=== PATIENT | male | born 1980 | race American Indian/Alaskan Native ===

== ENCOUNTER 2018-02-10 21:39 | Emergency (ER) | payer SELFPAY ==
[2018-02-10] MEDS ORDERED: TORADOL ONE (23:23)
[2018-02-10] MEDS ORDERED: TORADOL IV ONE (23:27)
[2018-02-11 00:18] LABS: Bilirubin,Urine NEG (Negative); Blood,Urine NEG (Negative); Color,Urine Yellow (Yellow); Mucus,Urine FEW /HPF; Protein,Urine <15 mg/dL mg/dL (Negative); Urobilinogen,Urine < 2.0 mg/dL (<2.0)
[2018-02-11 00:43] VITALS: BP 131/91
[2018-02-11] MEDS ORDERED: PERCOCET 5/325 PO ONE (01:11)
--- NOTE | 2018-02-11 01:43 | Emergency Department Report ---
ED Back Pain/Injury HPI - General Chief Complaint: Back Pain/Injury Stated Complaint: LEFT SIDE PAIN Time Seen by Provider: 02/11/18 00:51 Source: patient, family Limitations: No Limitations - History of Present Illness Initial Comments: 37-year-old male with a past medical history of hypertension presents to the hospital complaining of left-sided flank pain yesterday 8 PM tonight. Pain occurred with standing. Now pain is constant, sharp and aching, worse with palpation and movement. He denies nausea, vomiting, diaphoresis, hematuria, dysuria, chest pain, shortness of breath, abdominal pain, or fever. Also denies leg weakness, numbness, or urinary incontinence. Patient states he recently started new job which requires him to do a lot of standing - Related Data Previous Rx's Medication Instructions Recorded Last Taken Type Lisinopril [Zestril TAB] 40 mg PO QDAY #30 tablet 01/20/16 Unknown Rx Meclizine [Antivert] 25 mg PO Q12H #60 tablet 01/20/16 Unknown Rx Carvedilol [Coreg] 6.25 mg PO BID #60 tablet 03/17/16 Unknown Rx amLODIPine [Norvasc] 5 mg PO DAILY #30 tab 03/17/16 Unknown Rx Cyclobenzaprine [Flexeril] 10 mg PO TID PRN #30 tablet 02/11/18 Unknown Rx HYDROcodone/APAP 5-325 [[place] 1 each PO Q4HR PRN #20 tablet 02/11/18 Unknown Rx 5/325] Ibuprofen [Motrin] 800 mg PO Q8HR PRN #30 tablet 02/11/18 Unknown Rx Allergies Allergy/AdvReac Type Severity Reaction Status Date / Time No Known Allergies Allergy Verified 03/17/16 14:13 ED Review of Systems ROS: Stated complaint: LEFT SIDE PAIN Other details as noted in HPI Comment: All other systems reviewed and negative ED Past Medical Hx - Past Medical History Previous Medical History?: Yes Hx Hypertension: Yes Hx Congestive Heart Failure: No Hx Diabetes: No Hx Asthma: No Hx COPD: No - Surgical History Past Surgical History?: No - Social History Smoking Status: Former Smoker Substance Use Type: None - Medications Home Medications: Home Medications Medication Instructions Recorded Confirmed Last Taken Type Lisinopril [Zestril TAB] 40 mg PO QDAY #30 tablet 01/20/16 Unknown Rx Meclizine [Antivert] 25 mg PO Q12H #60 tablet 01/20/16 Unknown Rx Carvedilol [Coreg] 6.25 mg PO BID #60 tablet 03/17/16 Unknown Rx amLODIPine [Norvasc] 5 mg PO DAILY #30 tab 03/17/16 Unknown Rx Cyclobenzaprine [Flexeril] 10 mg PO TID PRN #30 tablet 02/11/18 Unknown Rx HYDROcodone/APAP 5-325 [[place] 1 each PO Q4HR PRN #20 tablet 02/11/18 Unknown Rx 5/325] Ibuprofen [Motrin] 800 mg PO Q8HR PRN #30 tablet 02/11/18 Unknown Rx ED Physical Exam - General Limitations: No Limitations - Other Other exam information: General: No limitations, patient is alert in no acute distress Head exam: Atraumatic, normocephalic Eyes exam: Normal appearance ENT: Moist mucous membrane, normal oropharynx Neck exam: Normal inspection, full range of motion, no meningismus nontender Respiratory exam: Clear to auscultation bilateral, no wheezes, rales, crackles Cardiovascular: Normal rate and rhythm, normal heart sounds Abdomen: Soft, nondistended, and nontender, with normal bowel sounds, no rebound, or guarding Extremity: Full range of motion normal inspection no deformity Back: Normal Inspection, full range of motion, reproducible left-sided flank muscular tenderness to palpation and movement Neurologic: Alert, oriented x3, cranial nerves intact, no motor or sensory deficit Psychiatric: normal affect, normal mood Skin: Warm, dry, intact ED Course Vital Signs 02/10/18 02/10/18 02/11/18 22:19 23:44 00:43 Temperature 98.6 F 98.3 F Pulse Rate 80 71 Respiratory 16 18 16 Rate Blood Pressure 133/92 Blood Pressure 131/91 [Left] O2 Sat by Pulse 99 100 Oximetry 02/11/18 01:22 Temperature Pulse Rate Respiratory 16 Rate Blood Pressure Blood Pressure [Left] O2 Sat by Pulse Oximetry - Reevaluation(s) Reevaluation #1: 02/11/18 01:45 Patient received Toradol prior to my evaluation he continues to have pain. 2 Percocet 5 mg tablets given 02/11/18 02:04 pt feeling better ED Medical Decision Making - Medical Decision Making Patient has reproducible muscular pain to palpation and movement and lacks other associated symptoms. Vital signs in normal range. Plan to discharge patient home with symptomatic treatment for muscle strain - Differential Diagnosis muscle strain, renal colic, dissection Critical Care Time: No Critical care attestation.: If time is entered above; I have spent that time in minutes in the direct care of this critically ill patient, excluding procedure time. ED Disposition Clinical Impression: Low back strain Disposition: DC-01 TO HOME OR SELFCARE Is pt being admited?: No Does the pt Need Aspirin: No Condition: Stable Instructions: Low Back Strain (ED) Additional Instructions: [place] and Flexeril prescribed may cause drowsiness. Do not drive or operate heavy machine while taking this medication. Follow-up with the doctor or clinic provided. Return if symptoms worsen as indicated by your discharge instructions Prescriptions: Cyclobenzaprine [Flexeril] 10 mg PO TID PRN #30 tablet PRN Reason: Muscle Spasm HYDROcodone/APAP 5-325 [[place] 5/325] 1 each PO Q4HR PRN #20 tablet PRN Reason: Pain Ibuprofen [Motrin] 800 mg PO Q8HR PRN #30 tablet PRN Reason: Pain Referrals: MARIBEL PRADHAN MD [Primary Care Provider] - 3-5 Days [facility] [Provider Group] - 3-5 Days Forms: Work/School Release Form(ED) Time of Disposition: 02:04
== END 2018-02-11 02:17 | disposition home or self-care (01) ==
LOC: ED 21:39
DX: S39.012A Strain of muscle, fascia and tendon of lower back, initial encounter (principal); I10 Essential (primary) hypertension; Z87.891 Personal history of nicotine dependence; X58.XXXA Exposure to other specified factors, initial encounter; Y93.89 Activity, other specified; Y92.89 Other specified places as the place of occurrence of the external cause; Y99.8 Other external cause status
CPT/HCPCS: 81001; 96374; 99283; J1885

== ENCOUNTER 2020-10-05 02:06 | Emergency (ER) | payer SELFPAY ==
--- NOTE | 2020-10-05 03:05 | XRay Report ---
CHEST 1 VIEW INDICATION: Chest Pain. COMPARISON: 01/19/2016 FINDINGS: SUPPORT DEVICES: None. HEART: Within normal limits. LUNGS/PLEURA: No acute air space or interstitial disease. ADDITIONAL FINDINGS: None. IMPRESSION: 1. No acute findings. Signer Name: Milad Anderson MD Signed: 10/05/2020 3:00 AM Workstation Name: [id number]
[2020-10-05] MEDS ORDERED: ACETAMINOPHEN 500 MG TAB PO ONE (03:10)
[2020-10-05] MEDS ORDERED: ASPIRIN 325 MG TAB PO ONE (03:12)
[2020-10-05 03:38] LABS: Basophils % (Auto) 0.1 % (0.0-1.8); Eosinophils % (Auto) 0.1 % (0.0-4.3); Hematocrit 42.7 % (35.5-45.6); Hemoglobin 14.2 gm/dl (11.8-15.2); Lymphocytes # (Auto) 1.7 K/mm3 (1.2-5.4); Lymphocytes % (Auto) 12.3 % (13.4-35.0); Mean Corpuscular HGB Conc 33 % (32-34); Mean Corpuscular Volume 83 fl (84-94); Monocytes # (Auto) 1.1 K/mm3 (0.0-0.8); Platelet Count 249 K/mm3 (140-440); Red Blood Count 5.13 M/mm3 (3.65-5.03); Red Cell Distribution Width 14.9 % (13.2-15.2)
[2020-10-05 03:49] LABS: BUN/Creatinine Ratio 11; Blood Urea Nitrogen 9 mg/dL (9-20); Calcium 10.1 mg/dL (8.4-10.2); Hemolysis Index 4
[2020-10-05] MEDS ORDERED: POTASSIUM CHLORIDE ER 20 MEQ TAB PO ONE ×2 (03:56→13:47)
[2020-10-05] MEDS ORDERED: LIDOCAINE VISCOUS 2% 15 ML ORAL LIQD PO ONE (08:15)
[2020-10-05] MEDS ORDERED: ALUM-MAG HYDROXIDE-SIMETHICONE 200-200-20MG/5ML ORAL LIQD 30 ML PO ONE (08:15)
[2020-10-05] MEDS ORDERED: ONDANSETRON 4 MG ODT TAB PO ONE (08:16)
--- NOTE | 2020-10-05 13:42 | Emergency Department Report ---
ED Chest Pain HPI - General Chief Complaint: Chest Pain Stated Complaint: DISCOMFORT TO CHEST PUI?: No Time Seen by Provider: 10/05/20 13:27 Source: patient Mode of arrival: Ambulatory Limitations: No Limitations - History of Present Illness Initial Comments: 40-year-old male, history of hypertension, acid reflux, anxiety, presents to ED with complaint of chest pain secondary to hiccups. He has had a significant hiccups for the last 3 days. Patient reports onset after a night of heavy drinking. He denies any nausea, vomiting, fever, shortness of breath. Patient states he is only having chest pain with the hiccups. Also reports burning, acid reflux type discomfort. MD Complaint: other -: days(s) (3) Onset: during rest Pain Location: substernal Pain Radiation: none Severity: moderate Severity scale (0 -10): 3 Consistency: intermittent Improves With: nothing Worsens With: nothing re: denies: nausea, vomting, diaphoresis, dyspnea Other Symptoms: denies: cough, fever, leg swelling - Related Data Previous Rx's Medication Instructions Recorded Last Taken Type Meclizine [Antivert] 25 mg PO Q12H #60 tablet 01/20/16 Unknown Rx lisinopriL [Zestril TAB] 40 mg PO QDAY #30 tablet 01/20/16 Unknown Rx amLODIPine [Norvasc] 5 mg PO DAILY #30 tab 03/17/16 Unknown Rx carvediloL [Coreg] 6.25 mg PO BID #60 tablet 03/17/16 Unknown Rx Cyclobenzaprine [Flexeril] 10 mg PO TID PRN #30 tablet 02/11/18 Unknown Rx HYDROcodone/APAP 5-325 [[place] 1 each PO Q4HR PRN #20 tablet 02/11/18 Unknown Rx 5/325] Ibuprofen [Motrin] 800 mg PO Q8HR PRN #30 tablet 02/11/18 Unknown Rx Metoclopramide HCl [Reglan TAB] 5 mg PO TID PRN #20 tablet 10/05/20 Unknown Rx Pantoprazole [Protonix] 40 mg PO BID #60 tablet 10/05/20 Unknown Rx Allergies Allergy/AdvReac Type Severity Reaction Status Date / Time No Known Allergies Allergy Verified 03/17/16 14:13 Heart Score - HEART Score History: Slightly suspicious EKG: Normal Age: < 45 Risk factors: No known risk factors Troponin: < normal limit HEART Score: 0 ED Review of Systems ROS: Stated complaint: DISCOMFORT TO CHEST Other details as noted in HPI Comment: All other systems reviewed and negative Constitutional: denies: chills, fever Respiratory: denies: cough, shortness of breath Cardiovascular: chest pain Gastrointestinal: denies: nausea, vomiting, diarrhea ED Past Medical Hx - Past Medical History Previous Medical History?: Yes Hx Hypertension: Yes Hx Congestive Heart Failure: No Hx Diabetes: No Hx Asthma: No Hx COPD: No - Surgical History Past Surgical History?: No - Social History Smoking Status: Former Smoker Substance Use Type: Alcohol - Medications Home Medications: Home Medications Medication Instructions Recorded Confirmed Last Taken Type Meclizine [Antivert] 25 mg PO Q12H #60 tablet 01/20/16 Unknown Rx lisinopriL [Zestril TAB] 40 mg PO QDAY #30 tablet 01/20/16 Unknown Rx amLODIPine [Norvasc] 5 mg PO DAILY #30 tab 03/17/16 Unknown Rx carvediloL [Coreg] 6.25 mg PO BID #60 tablet 03/17/16 Unknown Rx Cyclobenzaprine [Flexeril] 10 mg PO TID PRN #30 tablet 02/11/18 Unknown Rx HYDROcodone/APAP 5-325 [[place] 1 each PO Q4HR PRN #20 tablet 02/11/18 Unknown Rx 5/325] Ibuprofen [Motrin] 800 mg PO Q8HR PRN #30 tablet 02/11/18 Unknown Rx Metoclopramide HCl [Reglan TAB] 5 mg PO TID PRN #20 tablet 10/05/20 Unknown Rx Pantoprazole [Protonix] 40 mg PO BID #60 tablet 10/05/20 Unknown Rx ED Physical Exam - General Limitations: No Limitations General appearance: alert, in no apparent distress - Head Head exam: Present: atraumatic, normocephalic - Eye Eye exam: Present: normal appearance, EOMI - ENT ENT exam: Present: mucous membranes moist - Neck Neck exam: Present: normal inspection - Respiratory Respiratory exam: Present: normal lung sounds bilaterally. Absent: respiratory distress - Cardiovascular Cardiovascular Exam: Present: normal rhythm, tachycardia - GI/Abdominal GI/Abdominal exam: Present: soft. Absent: distended, tenderness - Extremities Exam Extremities exam: Present: normal inspection - Neurological Exam Neurological exam: Present: alert, oriented X3 - Psychiatric Psychiatric exam: Present: normal affect, normal mood - Skin Skin exam: Present: warm, dry, intact, normal color ED Course Vital Signs 10/05/20 10/05/20 10/05/20 02:30 07:52 13:42 Temperature 98.8 F 98.1 F 99 F Pulse Rate 124 H 130 H 126 H Respiratory 18 18 17 Rate Blood Pressure 161/118 Blood Pressure 166/111 155/102 [Right] O2 Sat by Pulse 95 97 98 Oximetry 10/05/20 10/05/20 10/05/20 13:45 13:48 15:33 Temperature 99 F Pulse Rate 102 H Respiratory 20 Rate Blood Pressure Blood Pressure 136/103 [Right] O2 Sat by Pulse 98 100 Oximetry 10/05/20 15:50 Temperature 99 F Pulse Rate 102 H Respiratory 20 Rate Blood Pressure Blood Pressure 136/103 [Right] O2 Sat by Pulse 100 Oximetry ED Medical Decision Making - Lab Data Result diagrams: 10/05/20 03:08 10/05/20 08:08 - EKG Data -: EKG Interpreted by [place] EKG shows normal: sinus rhythm, axis, QRS complexes Rate: tachycardia (rate 114) - EKG Data Interpretation: no acute changes, other (prolonged QT) - Radiology Data Radiology results: report reviewed, image reviewed - Medical Decision Making 40-year-old male presents to ED with report of hiccups, however, I have not witnessed any hiccups whenever I am in the room. Patient only reporting chest pain with hiccups. No chest pain while speaking with him. EKG shows no ST changes. Troponin is negative x3. Chest x-ray is unremarkable. Patient reports onset of hiccups after a night of heavy alcohol drinking. Patient given GI cocktail of and Reglan here in the ED. He was initially slightly tachycard ic, however tachycardia resolved with IV fluid bolus. Patient is comfortable, will be discharged at this time with prescriptions for Protonix and Reglan. Outpatient follow-up advised, return precautions given. - Differential Diagnosis Hiccups, GERD, ACS Critical care attestation.: If time is entered above; I have spent that time in minutes in the direct care of this critically ill patient, excluding procedure time. ED Disposition Clinical Impression: Hiccups Disposition: DC-01 TO HOME OR SELFCARE Is pt being admited?: No Condition: Stable Instructions: Hiccups Prescriptions: Pantoprazole [Protonix] 40 mg PO BID #60 tablet Metoclopramide HCl [Reglan TAB] 5 mg PO TID PRN #20 tablet PRN Reason: Hiccups Referrals: PRIMARY CARE, [Primary Care Provider] - 3-5 Days [facility] [Provider Group] - 3-5 Days [facility] [Provider Group] - 3-5 Days [facility] [Outside] - 3-5 Days Time of Disposition: 15:34
[2020-10-05] MEDS ORDERED: METOCLOPRAMIDE 10 MG TAB PO ONE (13:45)
[2020-10-05] MEDS ORDERED: SODIUM CHLORIDE 0.9% 1000 ML 1,000 ML IV ONE (13:56)
[2020-10-05 15:33] VITALS: BP 136/103
== END 2020-10-05 15:50 | disposition home or self-care (01) ==
LOC: ED 02:06
DX: R06.6 Hiccough (principal); I10 Essential (primary) hypertension; Z79.899 Other long term (current) drug therapy; Z87.891 Personal history of nicotine dependence
CPT/HCPCS: 36415; 71045; 80048; 84132; 84484; 85025; 93005; 96360; 99284; J7030; Q0162

== ENCOUNTER 2021-03-10 10:32 | Emergency (ER) | payer SELFPAY ==
[2021-03-10] MEDS ORDERED: ASPIRIN 325 MG TAB PO ONE (10:59)
--- NOTE | 2021-03-10 10:59 | Event Note ---
ED Screening Note Date of service: 03/10/21 Time: 10:58 ED Screening Note: This 40-year-old male presents to the ED with chest pain that began today. Patient states that he was out drinking and did some cocaine last night. Patient also complained nausea or vomiting. This initial assessment/diagnostic orders/clinical plan/treatment(s) is/are subject to change based on patients health status, clinical progression and re- assessment by fellow clinical providers in the ED. Further treatment and workup at subsequent clinical providers discretion. Patient/guardian urged not to elope from the ED as their condition may be serious if not clinically assessed and managed. Initial orders include: Labs ordered, EKG, chest x-ray, fluids
[2021-03-10] MEDS ORDERED: LORazepam 2 MG/ML VIAL IV PRN ×3 (11:23)
[2021-03-10] MEDS ORDERED: ONDANSETRON 4 MG/2 ML INJ IV ONE (11:24)
--- NOTE | 2021-03-10 11:29 | Emergency Department Report ---
ED Chest Pain HPI - General Chief Complaint: Chest Pain Stated Complaint: CHEST PAINS SINCE AM Time Seen by Provider: 03/10/21 11:02 Source: patient Mode of arrival: Ambulatory Limitations: No Limitations - History of Present Illness Initial Comments: Patient is 40 years old male with no significant past medical history except for polysubstance abuse. Patient presented to the ER complaining of substernal chest pain that started this morning. Patient describes his pain as sharp with no radiation. Patient stated the pain associated with palpitation. Patient stated that he has been drinking alcohol excessively for the last few days. Last drink was last night. Patient also stated that he has been doing cocaine. Patient is very anxious. He also reported visual hallucination. I believe patient is in DTs. And another call at MD Complaint: chest pain -: This morning Onset: during rest Pain Location: substernal Pain Radiation: none Quality: sharp Consistency: constant - Related Data Previous Rx's Medication Instructions Recorded Last Taken Type Meclizine [Antivert] 25 mg PO Q12H #60 tablet 01/20/16 Unknown Rx lisinopriL [Zestril TAB] 40 mg PO QDAY #30 tablet 01/20/16 Unknown Rx amLODIPine [Norvasc] 5 mg PO DAILY #30 tab 03/17/16 Unknown Rx carvediloL [Coreg] 6.25 mg PO BID #60 tablet 03/17/16 Unknown Rx Cyclobenzaprine [Flexeril] 10 mg PO TID PRN #30 tablet 02/11/18 Unknown Rx HYDROcodone/APAP 5-325 [[place] 1 each PO Q4HR PRN #20 tablet 02/11/18 Unknown Rx 5/325] Ibuprofen [Motrin] 800 mg PO Q8HR PRN #30 tablet 02/11/18 Unknown Rx Metoclopramide HCl [Reglan TAB] 5 mg PO TID PRN #20 tablet 10/05/20 Unknown Rx Pantoprazole [Protonix] 40 mg PO BID #60 tablet 10/05/20 Unknown Rx Allergies Allergy/AdvReac Type Severity Reaction Status Date / Time No Known Allergies Allergy Verified 03/17/16 14:13 Heart Score - HEART Score History: Slightly suspicious EKG: Non-specific Age: < 45 Risk factors: No known risk factors Troponin: < normal limit HEART Score: 1 - EKG Read Time Time EKG Completed: 10:39 EKG Read Time: 10:46 ED Review of Systems ROS: Stated complaint: CHEST PAINS SINCE AM Other details as noted in HPI Comment: All other systems reviewed and negative Constitutional: denies: chills, fever Respiratory: denies: cough, shortness of breath, SOB with exertion Cardiovascular: chest pain, palpitations Gastrointestinal: nausea, vomiting. denies: abdominal pain, diarrhea, constipation, hematemesis, melena, hematochezia Musculoskeletal: denies: back pain Neurological: denies: headache, weakness Psychiatric: visual hallucinations. denies: depression, auditory hallucinations, homicidal thoughts, suicidal thoughts ED Past Medical Hx - Past Medical History Previous Medical History?: Yes Hx Hypertension: Yes Hx Congestive Heart Failure: No Hx Diabetes: No Hx Asthma: No Hx COPD: No - Social History Smoking Status: Current Every Day Smoker Substance Use Type: Alcohol, Cocaine - Medications Home Medications: Home Medications Medication Instructions Recorded Confirmed Last Taken Type Meclizine [Antivert] 25 mg PO Q12H #60 tablet 01/20/16 Unknown Rx lisinopriL [Zestril TAB] 40 mg PO QDAY #30 tablet 01/20/16 Unknown Rx amLODIPine [Norvasc] 5 mg PO DAILY #30 tab 03/17/16 Unknown Rx carvediloL [Coreg] 6.25 mg PO BID #60 tablet 03/17/16 Unknown Rx Cyclobenzaprine [Flexeril] 10 mg PO TID PRN #30 tablet 02/11/18 Unknown Rx HYDROcodone/APAP 5-325 [[place] 1 each PO Q4HR PRN #20 tablet 02/11/18 Unknown Rx 5/325] Ibuprofen [Motrin] 800 mg PO Q8HR PRN #30 tablet 02/11/18 Unknown Rx Metoclopramide HCl [Reglan TAB] 5 mg PO TID PRN #20 tablet 10/05/20 Unknown Rx Pantoprazole [Protonix] 40 mg PO BID #60 tablet 10/05/20 Unknown Rx ED Physical Exam - General Limitations: No Limitations General appearance: alert, in no apparent distress, anxious - Head Head exam: Present: atraumatic, normocephalic, normal inspection - ENT ENT exam: Present: normal exam, normal orophraynx, mucous membranes moist - Neck Neck exam: Present: normal inspection, full ROM. Absent: tenderness, meningismus - Respiratory Respiratory exam: Present: normal lung sounds bilaterally - Cardiovascular Cardiovascular Exam: Present: tachycardia - GI/Abdominal GI/Abdominal exam: Present: soft, normal bowel sounds. Absent: distended, tenderness, guarding, rebound, rigid, organomegaly, mass, bruit, pulsatile mass - Extremities Exam Extremities exam: Present: normal inspection, full ROM, normal capillary refill. Absent: tenderness, pedal edema, joint swelling, calf tenderness - Back Exam Back exam: Present: normal inspection, full ROM. Absent: CVA tenderness (R), CVA tenderness (L) - Neurological Exam Neurological exam: Present: alert, oriented X3, CN II-XII intact, normal gait, reflexes normal. Absent: motor sensory deficit - Psychiatric Psychiatric exam: Present: normal mood, anxious - Skin Skin exam: Present: warm, intact, normal color ED Course Vital Signs 03/10/21 03/10/21 03/10/21 10:53 13:01 13:15 Temperature 98.3 F Pulse Rate 123 H 120 H 115 H Respiratory 20 27 H 38 H Rate Blood Pressure 148/99 156/108 156/108 O2 Sat by Pulse 100 98 96 Oximetry 03/10/21 03/10/21 03/10/21 13:31 13:45 14:01 Temperature Pulse Rate 115 H 117 H 111 H Respiratory 10 L 20 16 Rate Blood Pressure 156/108 156/108 181/111 O2 Sat by Pulse 93 97 99 Oximetry 03/10/21 03/10/21 03/10/21 14:15 14:31 14:37 Temperature Pulse Rate 109 H 122 H Respiratory 16 16 22 Rate Blood Pressure 181/111 181/111 O2 Sat by Pulse 99 99 98 Oximetry - Reevaluation(s) Reevaluation #1: 03/10/21 14:15 Patient stated that he is feeling much better. No nausea or vomiting. Reevaluation #2: 03/10/21 15:55 Patient is stating that he is feeling better however patient still tachycardic. Repeat the CIWA score and give Ativan accordingly. ED Medical Decision Making - Lab Data Result diagrams: 03/10/21 11:43 03/10/21 11:43 Critical care attestation.: If time is entered above; I have spent that time in minutes in the direct care of this critically ill patient, excluding procedure time. ED Disposition Clinical Impression: Alcohol withdrawal, Acute chest pain Disposition: DC-01 TO HOME OR SELFCARE Is pt being admited?: No Condition: Stable Instructions: Chest Pain (ED)
[2021-03-10] MEDS ORDERED: THIAMINE 100 MG, FOLIC ACID 1 MG, MULTIPLE VITAMIN INJ, ADULT 10 ML in SODIUM CHLORIDE ... IV ONE (12:00)
--- NOTE | 2021-03-10 12:06 | XRay Report ---
CHEST 2 VIEWS INDICATION / CLINICAL INFORMATION: Chest pain. COMPARISON: One view of the chest from 10/05/2020 FINDINGS: SUPPORT DEVICES: None. HEART / MEDIASTINUM: No significant abnormality. LUNGS / PLEURA: Clear lungs. No significant pleural effusion. No pneumothorax. ADDITIONAL FINDINGS: No significant additional findings. IMPRESSION: 1. No acute abnormality of the chest. Signer Name: Theo Baez MD Signed: 03/10/2021 12:01 PM Workstation Name: [id number]
[2021-03-10 12:39] LABS: Basophils % (Auto) 0.3 % (0.0-1.8); Eosinophils % (Auto) 0.1 % (0.0-4.3); Hematocrit 40.6 % (35.5-45.6); Lymphocytes % (Auto) 13.1 % (13.4-35.0); Mean Corpuscular HGB Conc 35 % (32-34); Mean Corpuscular Volume 84 fl (84-94); Monocytes # (Auto) 0.4 K/mm3 (0.0-0.8); Monocytes % (Auto) 5.4 % (0.0-7.3); Platelet Count 301 K/mm3 (140-440); Red Blood Count 4.85 M/mm3 (3.65-5.03); Red Cell Distribution Width 15.8 % (13.2-15.2)
[2021-03-10 12:52] LABS: Alanine Aminotransferase 184 units/L (7-56); Blood Urea Nitrogen 11 mg/dL (9-20); Calcium 9.4 mg/dL (8.4-10.2); Hemolysis Index 16
[2021-03-10 12:54] LABS: BUN/Creatinine Ratio 18
[2021-03-10 16:20] LABS: Amphetamine Screen,Urine PRESUMPTIVE NEGATIVE; Benzodiazepines Screen,Urine PRESUMPTIVE NEGATIVE; Cannabinoid Screen,Urine PRESUMPTIVE POSITIVE; Cocaine Screen,Urine PRESUMPTIVE POSITIVE; Methadone Screen,Urine PRESUMPTIVE NEGATIVE; Opiate Screen,Urine PRESUMPTIVE NEGATIVE
[2021-03-10 18:48] VITALS: BP 164/98
--- NOTE | 2021-03-11 14:39 | Electrocardiograph Report ---
[facility] Test Date: 2021-03-10 Test Time: 10:39:48 Pat Name: JUNI ANTHONY Department: Room: Gender: M [employer]: [place] : 1980 Requested By: GLENN MARLEY Order Number: [id number] Reading MD: Janae Redd Measurements Intervals [place] Rate: 132 P: 76 OK: 148 QRS: 71 QRSD: 85 T: -19 QT: 309 QTc: 460 Interpretive Statements Sinus tachycardia Probable left atrial enlargement Possible old anteroseptal infarct No previous ECG available for comparison Electronically Signed On 03-11-2021 14:39:12 EDT by Janae Redd
== END 2021-03-10 18:47 | disposition home or self-care (01) ==
LOC: ED 10:32
DX: F10.239 Alcohol dependence with withdrawal, unspecified (principal); R07.89 Other chest pain; I10 Essential (primary) hypertension; Z98.890 Other specified postprocedural states; Z79.899 Other long term (current) drug therapy; Y90.0 Blood alcohol level of less than 20 mg/100 ml
CPT/HCPCS: 36415; 71046; 80053; 80307; 84484; 85025; 93005; 96365; 96366; 96375; 96376; 99284; J2060; J2405; J3411; J7030

== ENCOUNTER 2021-06-29 13:57 | Emergency (ER) | payer SELFPAY ==
[2021-06-29] MEDS ORDERED: FAMOTIDINE 20 MG/2 ML INJ IV ONE (16:01)
[2021-06-29] MEDS ORDERED: METOCLOPRAMIDE 10 MG/2 ML INJ IV ONE (16:01)
[2021-06-29] MEDS ORDERED: DICYCLOMINE 20 MG TAB PO ONE (16:01)
[2021-06-29] MEDS ORDERED: SODIUM CHLORIDE 0.9% 1000 ML 1,000 ML IV ONE (16:01)
[2021-06-29] MEDS ORDERED: diphenhydrAMINE 50 MG/ML VIAL IV ONE (16:01)
[2021-06-29 16:59] LABS: Basophils % (Auto) 0.1 % (0.0-1.8); Eosinophils % (Auto) 0.1 % (0.0-4.3); Hematocrit 46.7 % (35.5-45.6); Lymphocytes # (Auto) 1.5 K/mm3 (1.2-5.4); Mean Corpuscular HGB Conc 34 % (32-34); Mean Corpuscular Volume 83 fl (84-94); Monocytes # (Auto) 1.1 K/mm3 (0.0-0.8); Monocytes % (Auto) 9.2 % (0.0-7.3); Platelet Count 219 K/mm3 (140-440); Red Blood Count 5.65 M/mm3 (3.65-5.03); Red Cell Distribution Width 14.7 % (13.2-15.2)
--- NOTE | 2021-06-29 17:07 | Emergency Department Report ---
ED Abdominal Pain HPI - General Chief Complaint: Nausea/Vomiting/Diarrhea Stated Complaint: FEELING HORRIBLE, VOMITING Time Seen by Provider: 06/29/21 16:01 Source: patient Mode of arrival: Ambulatory Limitations: No Limitations - History of Present Illness Initial Comments: This is a 41-year-old male nontoxic, well nourished in appearance, no acute sig ns of distress presents to the ED with c/o of nausea and vomiting and abdominal pain several days. Patient describes vomiting as food content and yellow gastric acid. Patient describes abdominal pain as cramping and aching with level of 8/10 diffuse. Patient denies chest pain, short of breath, fever, hemoptysis, blood in stool, chills, headache, stiff neck, numbness or tingling. Patient denies any diarrhea or constipation. Denies any blood in stool. Patient denies any recent travels. Patient denies any allergies. Patient denies any other symptoms or complaints. Patient said is a daily alcohol intake with last dose was about 4 days ago. Past medical history includes hypertension. MD Complaint: abdominal pain -: days(s) Location: diffuse Radiation: none Migration to: no migration Severity: mild Severity scale (0 -10): 8 Quality: aching Consistency: constant Improves With: nothing Worsens With: nothing Associated Symptoms: nausea, vomiting. denies: diarrhea, fever, chills, c onstipation, dysuria, hematemesis, hematochezia, melena, hematuria, anorexia, syncope - Related Data Previous Rx's Medication Instructions Recorded Last Taken Type Meclizine [Antivert] 25 mg PO Q12H #60 tablet 01/20/16 Unknown Rx lisinopriL [Zestril TAB] 40 mg PO QDAY #30 tablet 01/20/16 Unknown Rx amLODIPine [Norvasc] 5 mg PO DAILY #30 tab 03/17/16 Unknown Rx carvediloL [Coreg] 6.25 mg PO BID #60 tablet 03/17/16 Unknown Rx Cyclobenzaprine [Flexeril] 10 mg PO TID PRN #30 tablet 02/11/18 Unknown Rx HYDROcodone/APAP 5-325 [[place] 1 each PO Q4HR PRN #20 tablet 02/11/18 Unknown Rx 5/325] Ibuprofen [Motrin] 800 mg PO Q8HR PRN #30 tablet 02/11/18 Unknown Rx Metoclopramide HCl [Reglan TAB] 5 mg PO TID PRN #20 tablet 10/05/20 Unknown Rx Pantoprazole [Protonix] 40 mg PO BID #60 tablet 10/05/20 Unknown Rx Ondansetron [Zofran Odt] 4 mg PO Q8HR PRN #14 tab.rapdis 03/10/21 Unknown Rx chlordiazePOXIDE [Librium] 5 mg PO Q8H #21 capsule 03/10/21 Unknown Rx Allergies Allergy/AdvReac Type Severity Reaction Status Date / Time No Known Allergies Allergy Verified 03/17/16 14:13 ED Review of Systems ROS: Stated complaint: FEELING HORRIBLE, VOMITING Other details as noted in HPI Comment: All other systems reviewed and negative Constitutional: denies: chills, fever Eyes: denies: eye pain, eye discharge, vision change ENT: denies: ear pain, throat pain Respiratory: denies: cough, shortness of breath, wheezing Cardiovascular: denies: chest pain, palpitations Endocrine: no symptoms reported Gastrointestinal: abdominal pain, nausea, vomiting. denies: diarrhea, constipation, hematemesis, melena, hematochezia Genitourinary: denies: urgency, dysuria Musculoskeletal: denies: back pain, joint swelling, arthralgia Skin: denies: rash, lesions Neurological: denies: headache, weakness, paresthesias Psychiatric: denies: anxiety, depression Hematological/Lymphatic: denies: easy bleeding, easy bruising ED Past Medical Hx - Past Medical History Previous Medical History?: Yes Hx Hypertension: Yes Hx Congestive Heart Failure: No Hx Diabetes: No Hx Asthma: No Hx COPD: No - Social History Smoking Status: Current Every Day Smoker Substance Use Type: Alcohol, Cocaine - Medications Home Medications: Home Medications Medication Instructions Recorded Confirmed Last Taken Type Meclizine [Antivert] 25 mg PO Q12H #60 tablet 01/20/16 Unknown Rx lisinopriL [Zestril TAB] 40 mg PO QDAY #30 tablet 01/20/16 Unknown Rx amLODIPine [Norvasc] 5 mg PO DAILY #30 tab 03/17/16 Unknown Rx carvediloL [Coreg] 6.25 mg PO BID #60 tablet 03/17/16 Unknown Rx Cyclobenzaprine [Flexeril] 10 mg PO TID PRN #30 tablet 02/11/18 Unknown Rx HYDROcodone/APAP 5-325 [[place] 1 each PO Q4HR PRN #20 tablet 02/11/18 Unknown Rx 5/325] Ibuprofen [Motrin] 800 mg PO Q8HR PRN #30 tablet 02/11/18 Unknown Rx Metoclopramide HCl [Reglan TAB] 5 mg PO TID PRN #20 tablet 10/05/20 Unknown Rx Pantoprazole [Protonix] 40 mg PO BID #60 tablet 10/05/20 Unknown Rx Ondansetron [Zofran Odt] 4 mg PO Q8HR PRN #14 tab.rapdis 03/10/21 Unknown Rx chlordiazePOXIDE [Librium] 5 mg PO Q8H #21 capsule 03/10/21 Unknown Rx ED Physical Exam - General Limitations: No Limitations General appearance: alert, in no apparent distress - Head Head exam: Present: atraumatic, normocephalic - Eye Eye exam: Present: normal appearance - Neck Neck exam: Present: normal inspection, full ROM. Absent: tenderness, menin gismus, lymphadenopathy - Respiratory Respiratory exam: Present: normal lung sounds bilaterally. Absent: respiratory distress, wheezes, rales, rhonchi, stridor, chest wall tenderness, accessory muscle use, decreased breath sounds, prolonged expiratory - Cardiovascular Cardiovascular Exam: Present: regular rate, normal rhythm, tachycardia, normal heart sounds. Absent: bradycardia, irregular rhythm, systolic murmur, diastolic murmur, rubs, gallop - GI/Abdominal GI/Abdominal exam: Present: soft, tenderness (Diffuse), normal bowel sounds. Absent: distended, guarding, rebound, rigid, diminished bowel sounds, organomegaly, mass, bruit, pulsatile mass, hernia - Rectal Rectal exam: Present: deferred - Extremities Exam Extremities exam: Present: normal inspection, full ROM - Back Exam Back exam: Present: normal inspection, full ROM. Absent: tenderness, CVA te nderness (R), CVA tenderness (L), muscle spasm, paraspinal tenderness, vertebral tenderness, rash noted - Neurological Exam Neurological exam: Present: alert, oriented X3, normal gait - Psychiatric Psychiatric exam: Present: normal affect, normal mood - Skin Skin exam: Present: warm, dry, intact, normal color. Absent: rash ED Course Vital Signs 06/29/21 15:53 Temperature 98.2 F Pulse Rate 121 H Respiratory 18 Rate Blood Pressure 126/109 [Right] O2 Sat by Pulse 98 Oximetry - Reevaluation(s) Reevaluation #1: 06/29/21 17:08 Patient is speaking in full sentences with no signs of distress noted. - Consultations Consultation #1: 06/29/21 17:30 Patient has been consulted with Dr. Ko about patient history, physical exam, and labs and agrees to the ED plan of care. Consultation #2: 06/29/21 19:58 Patient has been consulted with Jenae Harris about patient history, physical exam, and labs/imaging results and agrees to the ED plan of care and admission. Consultation #3: 06/29/21 20:06 Patient has been consulted with Dr. Miranda about patient history, physical exam, and labs/imaging results and accepts patient to services and stated will sign patient out on coming hospitalist that is coming in during next shift. ED Medical Decision Making - Lab Data Result diagrams: 06/29/21 16:23 06/29/21 16:23 Lab Results 06/29/21 06/29/21 06/29/21 Range/Units 16:23 16:23 16:23 WBC 12.2 H (4.5-11.0) K/mm3 RBC 5.65 H (3.65-5.03) M/mm3 Hgb 16.0 H (11.8-15.2) gm/dl Hct 46.7 H (35.5-45.6) % MCV 83 L (84-94) fl MCH 28 (28-32) pg MCHC 34 (32-34) % RDW 14.7 (13.2-15.2) % Plt Count 219 (140-440) K/mm3 Lymph % (Auto) 12.0 L (13.4-35.0) % [place] % (Auto) 9.2 H (0.0-7.3) % Eos % (Auto) 0.1 (0.0-4.3) % Baso % (Auto) 0.1 (0.0-1.8) % Lymph # (Auto) 1.5 (1.2-5.4) K/mm3 [place] # (Auto) 1.1 H (0.0-0.8) K/mm3 Eos # (Auto) 0.0 (0.0-0.4) K/mm3 Baso # (Auto) 0.0 (0.0-0.1) K/mm3 Seg Neutrophils % 78.6 H (40.0-70.0) % Seg Neutrophils # 9.6 H (1.8-7.7) K/mm3 Sodium 132 L (137-145) mmol/L Potassium 2.5 L* (3.6-5.0) mmol/L Chloride 78.5 L (98-107) mmol/L Carbon Dioxide 38 H (22-30) mmol/L Anion Gap 18 mmol/L BUN 27 H (9-20) mg/dL Creatinine 1.3 (0.8-1.3) mg/dL Estimated GFR > 60 ml/min BUN/Creatinine Ratio 21 % Glucose 134 H (75-100) mg/dL Calcium 10.5 H (8.4-10.2) mg/dL Total Bilirubin 1.30 H (0.1-1.2) mg/dL AST 53 H (5-40) units/L ALT 61 H (7-56) units/L Alkaline Phosphatase 86 (35-129) units/L Total Protein 9.0 H (6.3-8.2) g/dL Albumin 4.9 (3.9-5) g/dL Albumin/Globulin Ratio 1.2 % Lipase 300 H (13-60) units/L Plasma/Serum Alcohol < 0.01 (0-0.07) % - EKG Data 06/29/21 20:10 Sinus tachycardia No STEMI. Reviewed and signed by . - Radiology Data [facility] [address] [place] [address] Cat Scan Report Signed Patient: JUNI ANTHONY MR#: [id number] : 1980 Acct:[id number] Age/Sex: 41 / M ADM Date: 06/29/21 Loc: ED Attending Dr: Ordering Physician: MARVIN DELUNA NP Date of Service: 06/29/21 Procedure(s): CT abdomen pelvis w con Accession Number(s): [id number] cc: MARVIN DELUNA NP CT ABDOMEN AND PELVIS WITH CONTRAST INDICATION / CLINICAL INFORMATION: abd pain with n/v. TECHNIQUE: Axial CT images were obtained through the abdomen and pelvis after IV contrast. All CT scans at this location are performed using CT dose reduction for ALARA by means of automated exposure control. COMPARISON: None available. FINDINGS: LOWER CHEST: No significant abnormality. LIVER: Markedly hypodense characteristic of severe hepatic steatosis. GALLBLADDER: Distended but no gallstones or inflammation. BILE DUCTS: No significant abnormality. PANCREAS: No significant abnormality. SPLEEN: No significant abnormality. ADRENALS: No significant abnormality. RIGHT KIDNEY / URETER: No significant abnormality. LEFT KIDNEY / URETER: No significant abnormality. STOMACH / SMALL BOWEL: No significant abnormality. COLON: Diverticulosis without acute inflammation. APPENDIX: No significant abnormality. PERITONEUM: No free fluid. No free air. No fluid collection. LYMPH NODES: No significant adenopathy. AORTA / ARTERIES: No significant abnormality. IVC / VEINS: No significant abnormality. URINARY BLADDER: No significant abnormality. REPRODUCTIVE ORGANS: No significant abnormality. ADDITIONAL FINDINGS: None. SKELETAL SYSTEM: No significant abnormality. IMPRESSION: 1. No inflammatory process or bowel obstruction. 2. Severe hepatic steatosis. Signer Name: Benton Bustamante MD Signed: 06/29/2021 7:20 PM Workstation Name: [id number] Transcribed By: DT Dictated By: Evens Bustamante MD Electronically Authenticated By: Evens Bustamante MD Signed Date/Time: 06/29/211919 DD/ 17 TD/TT: - Medical Decision Making 41-year-old male that presents with intractable nausea, vomiting, hypokalemia, and Severe hepatic steatosis. Patient stable and was examined by me. Patient received ED resuscitation. Patient placed on pvc monitor. Labs obtained and imaging obtained. Patient admitted with hospitalist. Patient consulted with attending's. Patient is notified of the lab results and imaging results no questions noted by the patient. At time of admission, the patient does not seem toxic or ill in appearance. No acute signs of distress noted. Patient agrees to admission treatment plan of care. No further questions noted by the patient. Critical care attestation.: If time is entered above; I have spent that time in minutes in the direct care of this critically ill patient, excluding procedure time. ED Disposition Clinical Impression: Hepatic steatosis, Hypokalemia, Total bilirubin, elevated, Abnormal liver function test, Intractable nausea and vomiting Disposition: 09 ADMITTED INPATIENT Is pt being admited?: Yes Condition: Stable Referrals: PRIMARY CARE, [Primary Care Provider] - 3-5 Days Time of Disposition: 20:17
[2021-06-29 17:18] LABS: Alanine Aminotransferase 61 units/L (7-56); Albumin 4.9 g/dL (3.9-5); BUN/Creatinine Ratio 21; Blood Urea Nitrogen 27 mg/dL (9-20); Calcium 10.5 mg/dL (8.4-10.2); Hemolysis Index 26
--- NOTE | 2021-06-29 19:24 | Cat Scan Report ---
CT ABDOMEN AND PELVIS WITH CONTRAST INDICATION / CLINICAL INFORMATION: abd pain with n/v. TECHNIQUE: Axial CT images were obtained through the abdomen and pelvis after IV contrast. All CT sc ans at this location are performed using CT dose reduction for ALARA by means of automated exposure c ontrol. COMPARISON: None available. FINDINGS: LOWER CHEST: No significant abnormality. LIVER: Markedly hypodense characteristic of severe hepatic steatosis. GALLBLADDER: Distended but no gallstones or inflammation. BILE DUCTS: No significant abnormality. PANCREAS: No significant abnormality. SPLEEN: No significant abnormality. ADRENALS: No significant abnormality. RIGHT KIDNEY / URETER: No significant abnormality. LEFT KIDNEY / URETER: No significant abnormality. STOMACH / SMALL BOWEL: No significant abnormality. COLON: Diverticulosis without acute inflammation. APPENDIX: No significant abnormality. PERITONEUM: No free fluid. No free air. No fluid collection. LYMPH NODES: No significant adenopathy. AORTA / ARTERIES: No significant abnormality. IVC / VEINS: No significant abnormality. URINARY BLADDER: No significant abnormality. REPRODUCTIVE ORGANS: No significant abnormality. ADDITIONAL FINDINGS: None. SKELETAL SYSTEM: No significant abnormality. IMPRESSION: 1. No inflammatory process or bowel obstruction. 2. Severe hepatic steatosis. Signer Name: Benton Bustamante MD Signed: 06/29/2021 7:20 PM Workstation Name: [id number]
[2021-06-29] MEDS ORDERED: ONDANSETRON 4 MG/2 ML INJ IV ONE (19:55)
[2021-06-29] MEDS ORDERED: chlorproMAZINE 25 MG TAB PO NR (20:59)
[2021-06-29] MEDS: POTASSIUM CHLORIDE 10 MEQ 10 MEQ/100 ML BAG IV SCH ×2 (21:23→21:24)
[2021-06-29] MEDS ORDERED: ONDANSETRON 4 MG/2 ML INJ IV PRN (21:53)
[2021-06-29] MEDS ORDERED: LORazepam 2 MG/ML VIAL IV PRN (21:53)
[2021-06-29] MEDS ORDERED: ACETAMINOPHEN 325 MG TAB PO PRN (21:53)
[2021-06-29] MEDS ORDERED: NALOXONE 0.4 MG/1 ML INJ IV PRN (21:53)
[2021-06-29] MEDS ORDERED: oxyCODONE /ACETAMINOPHEN 5-325MG TAB PO PRN (21:53)
[2021-06-29] MEDS ORDERED: HEPARIN 5,000 UNIT/1 ML VIAL SUB-Q SCH (22:00)
[2021-06-29] MEDS ORDERED: D5W/0.45% NACL 1,000 ML IV SCH (22:00)
[2021-06-29] MEDS ORDERED: METOCLOPRAMIDE 10 MG/2 ML INJ IV PRN (22:28)
--- NOTE | 2021-06-29 22:41 | History and Physical Report ---
History of Present Illness Date of examination: 06/29/21 Date of admission: 06/29/21 21:53 Chief complaint: Nausea vomiting x4 days, diarrhea x1, dry cough History of present illness: 41-year-old -[place] male with history of GERD, hypertension, cocaine use, tobacco use, and EtOH abuse who presents [facility] ED with complaints of abdominal pain, nausea, vomiting, and diarrhea. Patient reports experiencing 7/10 sharp generalized abdominal pain, intractable nausea and vomiting since last (). His pain is worse with palpation and movement and i mproves with rest. Denies taking any pain medicine for relief, hematemesis, and hemoptysis. Additionally patient reports nonbloody diarrhea which began earlier today. He states that he has had multiple episodes of watery loose stools since this morning. Endorses nonproductive cough. Denies hematochezia, melena, fever, chills, loss of smell and taste, headache, shortness of breath, palpitations, productive cough, or recent known sick exposure Past History Past Medical History: GERD, hypertension Past Surgical History: No surgical history Social history: single (Has a fianc), lives with family, smoking (Smokes marijuana 1 to 2 days a week), alcohol abuse (Drinks 2 pints of " white and or dark" liquor daily, last drink was on 06/25), full code, other (History of cocaine use, uses powder cocaine, last use 2 weeks ago) Family history: hypertension Medications and Allergies Allergies Allergy/AdvReac Type Severity Reaction Status Date / Time No Known Allergies Allergy Verified 03/17/16 14:13 Home Medications Medication Instructions Recorded Confirmed Last Taken Type Meclizine [Antivert] 25 mg PO Q12H #60 tablet 01/20/16 Unknown Rx lisinopriL [Zestril TAB] 40 mg PO QDAY #30 tablet 01/20/16 Unknown Rx amLODIPine [Norvasc] 5 mg PO DAILY #30 tab 03/17/16 Unknown Rx carvediloL [Coreg] 6.25 mg PO BID #60 tablet 03/17/16 Unknown Rx Cyclobenzaprine [Flexeril] 10 mg PO TID PRN #30 tablet 02/11/18 Unknown Rx HYDROcodone/APAP 5-325 [[place] 1 each PO Q4HR PRN #20 tablet 02/11/18 Unknown Rx 5/325] Ibuprofen [Motrin] 800 mg PO Q8HR PRN #30 tablet 02/11/18 Unknown Rx Metoclopramide HCl [Reglan TAB] 5 mg PO TID PRN #20 tablet 10/05/20 Unknown Rx Pantoprazole [Protonix] 40 mg PO BID #60 tablet 10/05/20 Unknown Rx Ondansetron [Zofran Odt] 4 mg PO Q8HR PRN #14 tab.rapdis 03/10/21 Unknown Rx chlordiazePOXIDE [Librium] 5 mg PO Q8H #21 capsule 03/10/21 Unknown Rx Active Meds: Active Medications Acetaminophen (Acetaminophen 325 Mg Tab) 650 mg PO Q4H PRN PRN Reason: Pain MILD(1-3)/Fever >100.5/CONKLIN Carvedilol (Carvedilol 6.25 Mg Tab) 6.25 mg PO BID BEAR Chlorpromazine HCl (Chlorpromazine 25 Mg Tab) 50 mg PO ONCE NR Stop: 06/29/21 23:59 Docusate Sodium (Docusate Sodium 100 Mg Cap) 100 mg PO BID BEAR Folic Acid (Folic Acid 1 Mg Tab) 1 mg PO QDAY BEAR Heparin Sodium (Porcine) (Heparin 5,000 Unit/1 Ml Vial) 5,000 unit SUB-Q Q12HR BEAR Dextrose/Sodium Chloride (D5/0.45ns) 1,000 mls @ 100 mls/hr IV DIRECT BEAR Lorazepam (Lorazepam 2 Mg/Ml Vial) 2 mg IV Q1H PRN PRN Reason: CIWA-Ar 8-15 Metoclopramide HCl (Metoclopramide 10 Mg/2 Ml Inj) 10 mg IV Q6H PRN PRN Reason: Nausea And Vomiting, hiccups Multivitamins (Multivitamins ,Therapeutic Tab) 1 each PO QDAY BEAR Naloxone HCl (Naloxone 0.4 Mg/1 Ml Inj) 0.1 mg IV Q2MIN PRN PRN Reason: Res Rate </= 8 or 02 SAT < 92% Ondansetron HCl (Ondansetron 4 Mg/2 Ml Inj) 4 mg IV Q6H PRN PRN Reason: Nausea And Vomiting Oxycodone/Acetaminophen (Oxycodone /Acetaminophen 5-325mg Tab) 1 tab PO Q6H PRN PRN Reason: Pain, Moderate (4-6) Pantoprazole Sodium (Pantoprazole 40 Mg Tab) 40 mg PO QDAY BEAR Sodium Chloride (Sodium Chloride 0.9% 10 Ml Flush Syringe) 10 ml IV BID BEAR Sodium Chloride (Sodium Chloride 0.9% 10 Ml Flush Syringe) 10 ml IV PRN PRN PRN Reason: LINE FLUSH Thiamine HCl (Thiamine 100 Mg Tab) 100 mg PO QDAY BEAR Review of Systems All systems: negative (As noted in HPI) Exam - Physical Exam Narrative exam: Physical exam General appearance: Present: No acute distress, alert and oriented 3, adult male - EENT Eyes: Present: PERRL, EOM intact ENT: hearing intact, normal dentition - Neck Neck: Present: supple, normal ROM - Respiratory Respiratory effort: Non-labored Respiratory: Clear throughout, dry cough noted during exam - Cardiovascular Heart rate: 110(bpm) Rhythm: Sinus tachycardia Heart Sounds: Present: S1 & S2. Absent: rub, click - Extremities Extremities: no ischemia, pulses intact, - Peripheral Assessment Peripheral Pulses: within normal limits - Abdominal General gastrointestinal: soft, non-tender, normal bowel sounds - Integumentary Integumentary: Present: warm, dry, multiple tattoos to bilateral upper extremities - Musculoskeletal Musculoskeletal: Able to move all extremities -Neurological Neurological: CN II-XII intact - Psychiatric Psychiatric: cooperative - Constitutional Vitals: Temp Pulse Resp BP Pulse Ox 98.2 F 121 H 18 126/109 98 06/29/21 15:53 06/29/21 15:53 06/29/21 15:53 06/29/21 15:53 06/29/21 15:53 Results - Labs CBC & Chem 7: 06/29/21 16:23 06/29/21 21:54 Labs: Laboratory Last Values WBC 12.2 K/mm3 (4.5-11.0) H 06/29/21 16:23 RBC 5.65 M/mm3 (3.65-5.03) H 06/29/21 16:23 Hgb 16.0 gm/dl (11.8-15.2) H 06/29/21 16:23 Hct 46.7 % (35.5-45.6) H 06/29/21 16:23 MCV 83 fl (84-94) L 06/29/21 16:23 MCH 28 pg (28-32) 06/29/21 16:23 MCHC 34 % (32-34) 06/29/21 16:23 RDW 14.7 % (13.2-15.2) 06/29/21 16:23 Plt Count 219 K/mm3 (140-440) 06/29/21 16:23 Lymph % (Auto) 12.0 % (13.4-35.0) L 06/29/21 16:23 [place] % (Auto) 9.2 % (0.0-7.3) H 06/29/21 16:23 Eos % (Auto) 0.1 % (0.0-4.3) 06/29/21 16:23 Baso % (Auto) 0.1 % (0.0-1.8) 06/29/21 16:23 Lymph # (Auto) 1.5 K/mm3 (1.2-5.4) 06/29/21 16:23 [place] # (Auto) 1.1 K/mm3 (0.0-0.8) H 06/29/21 16:23 Eos # (Auto) 0.0 K/mm3 (0.0-0.4) 06/29/21 16:23 Baso # (Auto) 0.0 K/mm3 (0.0-0.1) 06/29/21 16:23 Seg Neutrophils % 78.6 % (40.0-70.0) H 06/29/21 16:23 Seg Neutrophils # 9.6 K/mm3 (1.8-7.7) H 06/29/21 16:23 Sodium 132 mmol/L (137-145) L 06/29/21 16:23 Potassium 2.8 mmol/L (3.6-5.0) L* 06/29/21 21:54 Chloride 78.5 mmol/L (98-107) L 06/29/21 16:23 Carbon Dioxide 38 mmol/L (22-30) H 06/29/21 16:23 Anion Gap 18 mmol/L 06/29/21 16:23 BUN 27 mg/dL (9-20) H 06/29/21 16:23 Creatinine 1.3 mg/dL (0.8-1.3) 06/29/21 16:23 Estimated GFR > 60 ml/min 06/29/21 16:23 BUN/Creatinine Ratio 21 % 06/29/21 16:23 Glucose 134 mg/dL (75-100) H 06/29/21 16:23 Calcium 10.5 mg/dL (8.4-10.2) H 06/29/21 16:23 Total Bilirubin 1.30 mg/dL (0.1-1.2) H 06/29/21 16:23 AST 53 units/L (5-40) H 06/29/21 16:23 ALT 61 units/L (7-56) H 06/29/21 16:23 Alkaline Phosphatase 86 units/L (35-129) 06/29/21 16:23 Total Protein 9.0 g/dL (6.3-8.2) H 06/29/21 16:23 Albumin 4.9 g/dL (3.9-5) 06/29/21 16:23 Albumin/Globulin Ratio 1.2 % 06/29/21 16:23 Lipase 300 units/L (13-60) H 06/29/21 16:23 Plasma/Serum Alcohol < 0.01 % (0-0.07) 06/29/21 16:23 - Imaging and Cardiology Chest x-ray: pending Imaging and Cardiology: CT Abd/ Pelvis: IMPRESSION: 1. No inflammatory process or bowel obstruction. 2. Severe hepatic steatosis. Assessment and Plan Assessment and plan: Suspected COVID-19 virus infection -CXR pending -PCR pending, will isolate on MERRITT precautions for now -Follow-up on Covid inflammatory labs -Complains of intractable nausea vomiting x4 days, diarrhea x1 -Supportive care Intractable nausea and vomiting -Receiving IVF -Monitor -On antiemetics Acute abdominal pain -CT abdomen pelvis shows severe hepatic steatosis, negative for acute abnormal ities -Supportive care Hypokalemia -Severe at 2.6 on admission -Received potassium replacement in the ED -Follow-up on repeat lab -Continue to monitor replete prn Elevated liver enzymes -AST, ALT, and lipase -Likely due to alcoholic abuse EtOH Abuse -Reports drinking a minimum of 2 pints daily of dark and or white liquor -Last drink 4 days ago (, 06/25/2021) -Initiate CIWA protocol -Start Thiamine and Folic Acid -On D5 1/2 -Counseled for cessation abuse Dehydration -BUN 27, Na 132 -Hydrating with IVF -Monitor Hepatic steatosis -Seen on CT abdomen pelvis -Likely due to EtOH abuse -Noted Leukocytosis -WBC on admission 12.2 -Inflammatory vs infection -Afebrile -Cultures pending -Will hold off on starting abx for now -Continue to monitor CBC History of marijuana use -Reports smoking marijuana 1-2 times per week -Counseled for cessation History of cocaine use -Reports using powdered cocaine on a weekly basis, but has since quit -Last use approximately 2 weeks HTN -Monitor BP -Resume home Coreg History of GERD -On Protonix DVT PPx -On heparin Advance Directives: No VTE prophylaxis?: Chemical, Mechanical Plan of care discussed with patient/family: Yes
--- NOTE | 2021-06-29 22:58 | XRay Report ---
CHEST 2 VIEWS INDICATION / CLINICAL INFORMATION: PUI, cough. COMPARISON: None available. FINDINGS: SUPPORT DEVICES: None. HEART / MEDIASTINUM: No significant abnormality. LUNGS / PLEURA: No significant pulmonary or pleural abnormality. No pneumothorax. ADDITIONAL FINDINGS: No significant additional findings. IMPRESSION: 1. No acute findings. Signer Name: Jey Farooq MD Signed: 06/29/2021 10:53 PM Workstation Name: [id number]
[2021-06-29 23:10] LABS: C-Reactive Protein 0.8 mg/dL (0.00-1.30)
[2021-06-30] MEDS: DOCUSATE SODIUM 100 MG CAP PO SCH ×2 (02:59→12:22)
[2021-06-30] MEDS: POTASSIUM CHLORIDE 10 MEQ 10 MEQ/100 ML BAG IV SCH ×4 (02:59→05:52)
[2021-06-30] MEDS: carvediloL 6.25 MG TAB PO SCH ×2 (03:00→12:22)
[2021-06-30 03:45] LABS: Bilirubin,Urine NEG (Negative); Blood,Urine SM (Negative); Color,Urine Yellow (Yellow); Protein,Urine <15 mg/dL mg/dL (Negative)
[2021-06-30 03:53] LABS: Amphetamine Screen,Urine PRESUMPTIVE NEGATIVE; Benzodiazepines Screen,Urine PRESUMPTIVE NEGATIVE; Cannabinoid Screen,Urine PRESUMPTIVE POSITIVE; Cocaine Screen,Urine PRESUMPTIVE POSITIVE; Methadone Screen,Urine PRESUMPTIVE NEGATIVE; Opiate Screen,Urine PRESUMPTIVE NEGATIVE
[2021-06-30 05:08] LABS: Basophils % (Auto) 0.2 % (0.0-1.8); Eosinophils % (Auto) 0.3 % (0.0-4.3); Hematocrit 39.5 % (35.5-45.6); Hemoglobin 13.4 gm/dl (11.8-15.2); Lymphocytes # (Auto) 1.8 K/mm3 (1.2-5.4); Lymphocytes % (Auto) 20.8 % (13.4-35.0); Mean Corpuscular HGB Conc 34 % (32-34); Mean Corpuscular Volume 84 fl (84-94); Monocytes # (Auto) 1.1 K/mm3 (0.0-0.8); Monocytes % (Auto) 12.9 % (0.0-7.3); Platelet Count 152 K/mm3 (140-440); Red Blood Count 4.72 M/mm3 (3.65-5.03); Red Cell Distribution Width 14.3 % (13.2-15.2)
[2021-06-30 05:29] LABS: Alanine Aminotransferase 45 units/L (7-56); Albumin 4.2 g/dL (3.9-5); BUN/Creatinine Ratio 24; Blood Urea Nitrogen 26 mg/dL (9-20); Calcium 9.4 mg/dL (8.4-10.2); Hemolysis Index 6
[2021-06-30] MEDS ORDERED: PANTOPRAZOLE 40 MG TAB PO SCH (07:30)
[2021-06-30] MEDS ORDERED: FAMOTIDINE 20 MG/2 ML INJ IV SCH (10:00)
[2021-06-30] MEDS ORDERED: FOLIC ACID 1 MG TAB PO SCH (10:00)
[2021-06-30] MEDS ORDERED: POTASSIUM CHLORIDE ER 20 MEQ TAB PO SCH (10:00)
[2021-06-30] MEDS ORDERED: MULTIVITAMINS ,THERAPEUTIC TAB PO SCH (10:00)
[2021-06-30] MEDS ORDERED: THIAMINE 100 MG TAB PO SCH (10:00)
[2021-06-30] MEDS ORDERED: D5W/0.9% NACL 1,000 ML IV SCH (12:00)
[2021-06-30 13:17] VITALS: BP 122/85
--- NOTE | 2021-07-01 10:06 | Electrocardiograph Report ---
[facility] Test Date: 2021-06-29 Test Time: 16:11:27 Pat Name: JUNI ANTHONY Department: Room: [place] [address] Gender: M [employer] Developer: HUMERA : 1980 Requested By: MARVIN DELUNA Order Number: [id number] Reading MD: Janae Redd Measurements Intervals [place] Rate: 125 P: 52 WA: 132 QRS: 64 QRSD: 85 T: -35 QT: 377 QTc: 544 Interpretive Statements Sinus or atrial tachycardia Nonspecific ST changes Compared to ECG 03/10/2021 10:39:48 No significant change Electronically Signed On 07-01-2021 10:05:28 EDT by Janae Redd
--- NOTE | 2021-07-01 12:08 | Discharge Summary ---
Providers - Providers Primary care physician: DISTANCE LEARNING COORDINATOR Hospitalization Condition: Stable Hospital course: 41 YO Female with PSA, GERD, Cocaine Dependence, ETOH Dependence presents to ED for evaluation. Patient seen and evaluated in the emergency department. Patient underwent CT scan of the abdomen and pelvis for evaluation of abdominal pain. Patient work-up negative. Patient medically optimized. Patient treated with supportive care as well as dietary supplementation. Patient medically optimized and back to usual state of health. Patient denies complaints at the time of my evaluation. No reported nursing events. Patient seen and evaluated prior to discharge no significant physical exam findings. Patient discharged home instructed to follow-up with primary care physician within 3 to 5 days and to resume all prehospital medication. 35 minutes dedicated to patient discharge and coordination of care. Disposition: 01 HOME / SELF CARE / HOMELESS Final Discharge Diagnosis (Prints w/discharge instructions): Alcohol dependence. Homelessness. Polysubstance abuse Core Measure Documentation - Palliative Care Palliative Care/ Comfort Measures: Not Applicable - Core Measures Any of the following diagnoses?: none Exam - Constitutional Vitals: Temp Pulse Resp BP Pulse Ox 97.5 F L 89 14 122/85 99 06/30/21 13:02 06/30/21 13:02 06/30/21 13:02 06/30/21 13:02 06/30/21 13:02 General appearance: Present: no acute distress - EENT Eyes: Present: PERRL ENT: hearing intact, clear oral mucosa - Neck Neck: Present: supple, normal ROM - Respiratory Respiratory effort: normal Respiratory: bilateral: CTA - Cardiovascular Heart Sounds: Present: S1 & S2. Absent: rub, click - Extremities Extremities: pulses symmetrical, No edema Peripheral Pulses: within normal limits - Abdominal General gastrointestinal: Present: soft, non-tender, non-distended, normal bowel sounds Male genitourinary: Present: normal - Integumentary Integumentary: Present: clear, warm, dry - Musculoskeletal Musculoskeletal: gait normal, strength equal bilaterally - Psychiatric Psychiatric: appropriate mood/affect, intact judgment & insight - Neurologic Neurologic: CNII-XII intact, moves all extremities Plan Activity: advance as tolerated Diet: low fat, low salt, other (Abstinence from cocaine and alcohol) Special Instructions: other (Attend Alcoholics Anonymous meeting at discharge.) Follow up with: PRIMARY CARE, [Primary Care Provider] - 3-5 Days Prescriptions: Sucralfate [Carafate] 1 gm PO ACHS #150 ml
== END 2021-06-30 13:30 | disposition home or self-care (01) ==
LOC: ED 13:57 → UNDOADMOB 21:53 → 4A 21:53 → ED 06-30 13:30
DX: R94.5 Abnormal results of liver function studies (principal); K76.0 Fatty (change of) liver, not elsewhere classified; R11.2 Nausea with vomiting, unspecified; E87.6 Hypokalemia; I10 Essential (primary) hypertension; F17.200 Nicotine dependence, unspecified, uncomplicated; F12.90 Cannabis use, unspecified, uncomplicated; Z20.822 Contact with and (suspected) exposure to COVID-19; Z79.899 Other long term (current) drug therapy
CPT/HCPCS: 36415; 71046; 74177; 80053; 82140; 82728; 82947; 83615; 83690; 83735; 84100; 84132; 84145; 85025; 85379; 86140; 87040; 93005; 96365; 96366; 96375; 99284; J1200; J1644; J2405; J2765; J3480; J7030; Q0161; Q9967; U0003; 80307; 80320; 81001; G0480